=== PATIENT | female | born 1990 | race Hispanic/Latino ===

== ENCOUNTER 2021-12-18 10:30 | Emergency (ER) | payer OTHER ==
[~2021-12-18] VITALS: Ht 154.9 cm; Wt 62.1 kg
[2021-12-18 10:31] VITALS: BP 149/96
[2021-12-18] MEDS ORDERED: AMOX1TAB16 PO (12:11)
[2021-12-18] MEDS ORDERED: AMOX/CLAV 875/125MG TAB PO ONE (12:30)
== END 2021-12-18 12:16 | disposition home or self-care (01) ==
LOC: EDH 10:30
DX: R59.0 Localized enlarged lymph nodes (principal)

== ENCOUNTER 2022-07-11 16:35 | Emergency (ER) | payer OTHER ==
[~2022-07-11] VITALS: Ht 154.9 cm; Wt 62.6 kg
[~2022-07-11 16:35] MED LIST: AMOX1TAB16 PO
[2022-07-11 17:33] VITALS: BP 146/109
[2022-07-11] MEDS ORDERED: IBUPROFEN 600 MG TABLET PO ONE (20:30)
[2022-07-11] MEDS ORDERED: ACETAMINOPHEN 500 MG TABLET PO ONE (20:30)
[2022-07-11] MEDS ORDERED: CYCL10TA16 PO (22:55)
[2022-07-11] MEDS ORDERED: IBUP-2070 PO (22:55)
== END 2022-07-11 22:58 | disposition home or self-care (01) ==
LOC: EDH 16:35
DX: S29.012A Strain of muscle and tendon of back wall of thorax, initial encounter (principal); M54.50 Low back pain, unspecified; V49.49XA Driver injured in collision with other motor vehicles in traffic accident, initial encounter; Y93.89 Activity, other specified; Y92.413 State road as the place of occurrence of the external cause; Y99.8 Other external cause status
CPT/HCPCS: 72072; 72100

== ENCOUNTER 2023-01-17 00:48 | Emergency (ER) | payer OTHER ==
[~2023-01-17] VITALS: Ht 154.9 cm; Wt 67.1 kg
[~2023-01-17 00:48] MED LIST changes: +CYCL10TA16 PO; +IBUP-2070 PO
[2023-01-17 01:15] LABS: HEMATOCRIT 37.5 % (36-48); MEAN CORPUSCULAR HEMOGLOBIN 29.3 pg (27.0-33.0); MEAN CORPUSCULAR HGB CONC 32.5 g/dL (32.0-36.0); MEAN CORPUSCULAR VOLUME 90.1 fL (79-99); RED BLOOD CELL COUNT(AUTO) 4.16 MIL/uL (4.00-5.50); RED CELL DISTRIBUTION WIDTH 13.4 % (11.0-15.5); WHITE BLOOD COUNT (AUTO) 10.3 K/uL (4.8-10.8)
[2023-01-17 01:20] LABS: APPEARANCE,URINE CLEAR (CLEAR); BILIRUBIN,URINE NEGATIVE (NEGATIVE); COLOR,URINE COLORLESS (YELLOW); GLUCOSE, URINE (UA) NEGATIVE (NEGATIVE); KETONES,URINE 10 mg/dL (NEGATIVE); LEUKOCYTE ESTERASE ,URINE NEGATIVE Leu/uL (NEGATIVE); NITRATE,URINE NEGATIVE (NEGATIVE); OCCULT BLOOD,URINE NEGATIVE (NEGATIVE); PH,URINE 6.5 (5.0-8.0); PROTEIN,URINE NEGATIVE (NEGATIVE); UROBILINOGEN,URINE 0.2 mg/dL (0.2-1.0)
[2023-01-17] MEDS ORDERED: ALPRAZOLAM 0.5 MG TABLET PO ONE (01:30)
[2023-01-17 01:33] LABS: CREATININE 0.7 mg/dL (0.5-1.5); TOTAL PROTEIN, SERUM 7.7 g/dL (6.0-8.3)
[2023-01-17] MEDS ORDERED: ALPRAZOLAM 0.5 MG TABLET ONE (01:36)
[2023-01-17 01:40] LABS: POTASSIUM 2.7 mmol/L (3.5-5.1)
[2023-01-17] MEDS ORDERED: KCL 20 MEQ ERTAB PO ONE ×2 (01:43→02:00)
[2023-01-17] MEDS ORDERED: POTASSIUM CHLORIDE 20MEQ/100ML 100 ML IV ONE (01:49)
[2023-01-17] MEDS ORDERED: POTASSIUM CHLORIDE 20MEQ/10ML 10 MEQ in 0.9%NACL 50ML 50 ML IV SCH (02:00)
[2023-01-17 03:05] VITALS: BP 148/100
== END 2023-01-17 04:27 | disposition home or self-care (01) ==
LOC: EDH 00:48
DX: I10 Essential (primary) hypertension (principal); Z79.899 Other long term (current) drug therapy
CPT/HCPCS: 99285; 96365; 84484; 80053; 85027; 81003; 36415; 93005; J3480

== ENCOUNTER 2023-04-01 18:23 | Emergency (ER) | payer BC, OTHER ==
[~2023-04-01] VITALS: Ht 154.9 cm; Wt 61.7 kg
[2023-04-01] MEDS ORDERED: 0.9%NACL 1000ML 1,000 ML IV ONE (20:30)
[2023-04-01 21:19] LABS: ADD UA MICROSCOPIC YES; APPEARANCE,URINE CLEAR (CLEAR); BILIRUBIN,URINE NEGATIVE (NEGATIVE); COLOR,URINE LIGHT-YELLOW (YELLOW); GLUCOSE, URINE (UA) NEGATIVE (NEGATIVE); KETONES,URINE 40 mg/dL (NEGATIVE); LEUKOCYTE ESTERASE ,URINE NEGATIVE Leu/uL (NEGATIVE); NITRATE,URINE NEGATIVE (NEGATIVE); OCCULT BLOOD,URINE NEGATIVE (NEGATIVE); PH,URINE 6.5 (5.0-8.0); PROTEIN,URINE NEGATIVE (NEGATIVE); UROBILINOGEN,URINE 0.2 mg/dL (0.2-1.0)
[2023-04-01 21:21] LABS: BASOPHILS # (AUTO) 0.02 K/uL (0.00-0.20); BASOPHILS % (AUTO) 0.2 % (0.0-5.0); EOSINOPHILS # (AUTO) 0.07 K/uL (0.00-0.70); EOSINOPHILS % (AUTO) 0.7 % (0.0-8.0); HEMATOCRIT 38.3 % (36-48); IMMATURE GRANULOCYTE ABSOLUTE 0.02 K/uL (0-1); LYMPHOCYTES % (AUTO) 31.1 % (21.0-51.0); MEAN CORPUSCULAR HEMOGLOBIN 29.4 pg (27.0-33.0); MEAN CORPUSCULAR HGB CONC 32.1 g/dL (32.0-36.0); MEAN CORPUSCULAR VOLUME 91.6 fL (79-99); MONOCYTES # (AUTO) 0.7 K/uL (0.1-1.0); MONOCYTES % (AUTO) 7.1 % (3.0-13.0); NEUTROPHILS # (AUTO) 5.8 K/uL (1.8-7.7); NEUTROPHILS % (AUTO) 60.7 % (40.0-77.0); PLATELET COUNT (AUTO) 389 K/uL (130-400); RED BLOOD CELL COUNT(AUTO) 4.18 MIL/uL (4.00-5.50); RED CELL DISTRIBUTION WIDTH 13.5 % (11.0-15.5); WHITE BLOOD COUNT (AUTO) 9.6 K/uL (4.8-10.8)
[2023-04-01 21:23] LABS: BACTERIA,URINE RARE /HPF (None Seen); MUCUS,URINE RARE LPF (None Seen); RBC,URINE 0-1 /HPF (0-1); SQUAMOUS EPITHELIAL CELL,UR RARE /HPF (0-2); WBC,URINE 0-1 /HPF (0-1)
[2023-04-01 21:44] LABS: CREATININE 0.7 mg/dL (0.5-1.5); POTASSIUM 3.1 mmol/L (3.5-5.1)
[2023-04-01] MEDS ORDERED: POTASSIUM BICARB/CIT AC 25 MEQ TABLET.EFF PO SCH (21:53)
[2023-04-01 22:00] LABS: ALBUMIN 3.9 g/dL (3.5-5.0); BILIRUBIN,TOTAL 0.2 mg/dL (0.2-1.0); MAGNESIUM 2.3 mg/dL (1.80-2.40); TOTAL PROTEIN, SERUM 7.4 g/dL (6.0-8.3)
[2023-04-01 22:36] VITALS: BP 145/89; PULSE 89; RESP 18; O2SAT 99
== END 2023-04-01 22:37 | disposition home or self-care (01) ==
LOC: EDH 18:23
DX: I10 Essential (primary) hypertension (principal); F41.9 Anxiety disorder, unspecified
CPT/HCPCS: 99284; 96360; 71045; 96361; 83735; 84484; 80053; 84703; 85025; 81001; 36415; 93005; J7030